=== PATIENT | male | born 1990 | race Caucasian/White ===

== ENCOUNTER 2017-08-01 19:31 | Emergency (ER) | payer SELFPAY ==
[2017-08-01] MEDS ORDERED: DIPH/PERTUSS(ACELL)/TETANUS VAC/PF 0.5 ML SYR (>=10YO) IM ONE (19:36)
[2017-08-01] MEDS ORDERED: TOPIRAMATE 25 MG TABLET PO ONE (19:36)
[2017-08-01 19:38] VITALS: BP 128/80
--- NOTE | 2017-08-01 19:39 | ER Document Report ---
ED General - General Chief Complaint: Probable Seizure Stated Complaint: FALL, POSSIBLE SEIZURE Time Seen by Provider: 08/01/17 19:35 Mode of Arrival: Ambulatory Information source: Patient Notes: 27 yr old male with hx of seizure disorder who is on topimax 50mg bid presents with seizure episode. Pt denies any fevers or chills, denies any neck pain. pt notes that he has not been taking his meds the way he is supposed to. Patient denies any facial pain notes abrasions. - HPI Onset: Just prior to arrival Onset/Duration: Sudden Quality of pain: Burning Severity: Mild Pain Level: 1 Associated symptoms: Other Exacerbated by: Denies Relieved by: Denies Similar symptoms previously: Yes Recently seen / treated by doctor: Yes Past Medical History - Social History Smoking Status: Current Every Day Smoker Cigarette use (# per day): Yes Chew tobacco use (# tins/day): No Smoking Education Provided: No Family History: Reviewed & Not Pertinent Review of Systems - Review of Systems Notes: REVIEW OF SYSTEMS: CONSTITUTIONAL : Denies fever, chills, or sweats. Denies recent illness. EENT: Denies eye, ear, throat, or mouth pain or symptoms. Denies nasal or sinus congestion or discharge. Denies throat, tongue, or mouth swelling or difficulty swallowing. CARDIOVASCULAR: Denies chest pain. Denies palpitations or racing or irregular heart beat. Denies ankle edema. RESPIRATORY: Denies cough, cold, or chest congestion. Denies shortness of breath, difficulty breathing, or wheezing. GASTROINTESTINAL: Denies abdominal pain or distention. Denies nausea, vomiting , or diarrhea. Denies blood in vomitus, stools, or per rectum. Denies black, tarry stools. Denies constipation. GENITOURINARY: Denies difficulty urinating, painful urination, burning, frequency, blood in urine, or discharge. MUSCULOSKELETAL: Denies back or neck pain or stiffness. Denies joint pain or swelling. SKIN: admits to abrasion HEMATOLOGIC : Denies easy bruising or bleeding. LYMPHATIC: Denies swollen, enlarged glands. NEUROLOGICAL: admitsto seizure . PSYCHIATRIC: Denies anxiety or stress. Denies depression, suicidal ideation, or homicidal ideation. ALL OTHER SYSTEMS REVIEWED AND NEGATIVE. Dictation was performed using [employer] voice recognition software PHYSICAL EXAMINATION: GENERAL: Well-appearing, well-nourished and in no acute distress. HEAD: Atraumatic, normocephalic. EYES: Pupils equal round and reactive to light, extraocular movements intact, sclera anicteric, conjunctiva are normal. ENT: Nares patent, oropharynx clear without exudates. Moist mucous membranes. NECK: Normal range of motion, supple without lymphadenopathy LUNGS: Breath sounds clear to auscultation bilaterally and equal. No wheezes rales or rhonchi. HEART: Regular rate and rhythm without murmurs ABDOMEN: Soft, nontender, nondistended abdomen. No guarding, no rebound. No masses appreciated. Musculoskeletal: Normal range of motion, no pitting or edema. No cyanosis. NEUROLOGICAL: Cranial nerves grossly intact. Normal speech, normal gait. Normal sensory, motor exams PSYCH: Normal mood, normal affect. SKIN: abrasion to right cheek, abrasion to lower inner lip, abrasions to bilateral knees. Course - Re-evaluation Re-evalutation: 08/01/17 19:38 Patient refuses to have any imaging or lab work, I will treat him for his wounds give a dose of topiramate here update tetanus start patient on Keflex due to multiple abrasions otherwise he is well-appearing alert oriented no distress seizure episode only lasted approximately 30 seconds After performing a Medical Screening Examination, I estimate there is LOW risk for ACUTE GLAUCOMA, TEMPORAL ARTERITIS, MENINGITIS, INCRANIAL HEMORRHAGE, or ISCHEMIC STROKE thus I consider the discharge disposition reasonable. I have reevaluated this patient multiple times and no significant life threatening changes are noted. The patient and I have discussed the diagnosis and risks, and we agree with discharging home with close follow-up with the understanding that symptoms and presentations can change. We also discussed returning to the Emergency Department immediately if new or worsening symptoms occur. We have discussed the symptoms which are most concerning (e.g., changing or worsening symptoms, new numbness or weakness, vomiting, fever) that necessitate immediate return. Discharge - Discharge Clinical Impression: Seizure, Abrasions of multiple sites Condition: Stable Disposition: HOME, SELF-CARE Instructions: Seizure, Known Epileptic ([facility]) Additional Instructions: Follow up with your physician tomorrow for further care or return to the ED IMMEDIATELY if symptoms worsen or new concerns occur. If you cannot afford to follow up with your primary care physician a list of low cost clinics have been provided at the end of your discharge papers as well. Prescriptions: Cephalexin Monohydrate [Keflex 500 mg Capsule] 500 mg PO Q6H 5 Days capsule Topiramate 50 mg PO BID #60 tablet
[2017-08-01] MEDS ORDERED: CEPHALEXIN 500 MG CAPSULE PO ONE (19:40)
== END 2017-08-01 19:59 | disposition home or self-care (01) ==
LOC: ER 19:31
DX: G40.909 Epilepsy, unspecified, not intractable, without status epilepticus (principal); S00.81XA Abrasion of other part of head, initial encounter; S00.511A Abrasion of lip, initial encounter; S80.212A Abrasion, left knee, initial encounter; S80.211A Abrasion, right knee, initial encounter; F17.210 Nicotine dependence, cigarettes, uncomplicated; X58.XXXA Exposure to other specified factors, initial encounter; Z23 Encounter for immunization
CPT/HCPCS: 99284; 90471; 90715; J3490

== ENCOUNTER 2017-09-08 12:56 | Emergency (ER) | payer SELFPAY ==
[2017-09-08 13:08] VITALS: BP 124/73
--- NOTE | 2017-09-08 13:38 | ER Document Report ---
HPI - HPI Patient complains to provider of: Refill Topiramate TE 50 mg Onset: Other - Has a history of epilepsy has not obtained a primary doctor since moving here Pain Level: Denies Associated Symptoms: Other - Needs refill of seizure medicines Exacerbated by: Denies Relieved by: Denies Similar symptoms previously: Yes Recently seen / treated by doctor: No - ROS ROS below otherwise negative: Yes - CONSTITUTIONAL Constitutional: DENIES: Fever, Chills - EENT EENT: DENIES: Sore Throat, Ear Pain, Nasal Drainage-Clear, Nasal Drainage- Purulent, Congestion, Eye problems - NEURO Neurology: DENIES: Headache, Weakness, Vision blurred, Dizzinesss / Vertigo - CARDIOVASCULAR Cardiovascular: DENIES: Chest pain - RESPIRATORY Respiratory: DENIES: Trouble Breathing, Coughing - GASTROINTESTINAL Gastrointestinal: DENIES: Abdominal Pain, Nausea, Patient vomiting, Diarrhea, Constipation, Black / Bloody Stools - URINARY Urinary: DENIES: Dysuria, Urgency, Frequency - REPRODUCTIVE Reproductive: DENIES: :, Postmenopausal, Abnormal bleeding / discharge - MUSCULOSKELETAL Musculoskeletal: DENIES: Extremity pain, Back Pain, Neck Pain, Swelling - DERM Skin Color: Normal Skin Problems: None Past Medical History - General Information source: Patient - Social History Smoking Status: Current Every Day Smoker Cigarette use (# per day): Yes - Pack per day Chew tobacco use (# tins/day): No Smoking Education Provided: Yes - 4 minutes Frequency of alcohol use: None Drug Abuse: None Occupation: [employer] Lives with: Friend Family History: Reviewed & Not Pertinent Patient has suicidal ideation: No Patient has homicidal ideation: No - Past Medical History Cardiac Medical History: Reports: None Pulmonary Medical History: Reports: None EENT Medical History: Reports: None Neurological Medical History: Reports: Hx Seizures Endocrine Medical History: Reports: None Renal/ Medical History: Reports: None Malignancy Medical History: Reports None GI Medical History: Reports: None Musculoskeltal Medical History: Reports None Skin Medical History: Reports None Psychiatric Medical History: Reports: None Traumatic Medical History: Reports: None Infectious Medical History: Reports: None Surgical Hx: Negative Past Surgical History: Reports: None Vertical Provider Document - CONSTITUTIONAL Agree With Documented VS: Yes Exam Limitations: No Limitations General Appearance: WD/WN - INFECTION CONTROL TRAVEL OUTSIDE OF THE U.S. IN LAST 30 DAYS: No - HEENT HEENT: Atraumatic, Normal ENT Exam, Normocephalic, PERRLA - NECK Neck: Normal Inspection, Supple - RESPIRATORY Respiratory: Breath Sounds Normal, No Respiratory Distress - CARDIOVASCULAR Cardiovascular: Regular Rhythm, Tachycardia - MUSCULOSKELETAL/EXTREMETIES Musculoskeletal/Extremeties: MAEW, FROM, Non-Tender - NEURO Level of Consciousness: Awake, Alert, Appropriate - DERM Integumentary: Warm, Dry Course - Re-evaluation Re-evalutation: 09/08/17 22:24 Patient needed refill for his seizure medications patient was instructed to please follow-up with her primary care doctor and get his refills at the primary care doctor. He was instructed that it is an appropriate to keep coming to the emergency room for his seizure medications as these medications need to be monitored and patient was given a list of local primary doctor's and a neurologist in [place] to get his refills. - Vital Signs Vital signs: Temp Pulse Resp BP Pulse Ox 99.7 F 116 H 20 124/73 97 09/08/17 13:07 09/08/17 13:07 09/08/17 13:07 09/08/17 13:07 09/08/17 13:07 Discharge - Discharge Clinical Impression: Medicine refill, Seizure disorder Condition: Stable Disposition: HOME, SELF-CARE Additional Instructions: He was seen today for medication refill for your seizure medicine. It is extremely important that you get a primary care doctor to monitor your seizure medications and to refill your medications. Able to given you a list of the local primary doctor's. Please call in obtaining a primary care doctor. Seizure You have had a seizure. Seizure disorders (epilepsy) of one sort or another affect about one out of 50 people. The seizure occurs because of abnormal electrical activity in the brain. Seizures may be due to drugs and alcohol, strokes, brain injury, or infection. In the most common form of epilepsy, no cause can be found. You will require further evaluation to determine the cause of your seizure, and to determine whether anti-seizure medication is required. This follow-up testing is important, so please call us if you encounter problems with scheduling of tests or appointments. YOU SHOULD NOT DRIVE until released to do so by your physician. The law requires that seizures be reported to the regional owner operator truck driver's license bureau--a seizure while driving could be catastrophic. Call the doctor if seizures recur, or if you develop new symptoms such as fever, severe headache, stiff neck, confusion or increasing sleepiness, weakness or numbness, or visual problems. FOLLOW-UP CARE: If you have been referred to a physician for follow-up care, call the physician s office for an appointment as you were instructed or within the next two days. If you experience worsening or a significant change in your symptoms, notify the physician immediately or return to the Emergency Department at any time for re-evaluation. [facility] Neurology [address], [place] Open 8:30 AM - 4:30 PM Prescriptions: Topiramate 50 mg PO BID #60 tablet Forms: Smoking Cessation Education, Return to Work Referrals: [facility] [Provider Group] - Follow up as needed
== END 2017-09-08 13:46 | disposition home or self-care (01) ==
LOC: ER 12:56
DX: Z76.0 Encounter for issue of repeat prescription (principal); G40.909 Epilepsy, unspecified, not intractable, without status epilepticus; F17.210 Nicotine dependence, cigarettes, uncomplicated; Z71.6 Tobacco abuse counseling
CPT/HCPCS: 99281; 99406

== ENCOUNTER 2017-10-20 12:01 | Emergency (ER) | payer SELFPAY ==
[2017-10-20 12:27] VITALS: BP 114/74
--- NOTE | 2017-10-20 13:11 | ER Document Report ---
HPI - HPI Patient complains to provider of: Needs medication refill Onset: Other - 2 days ago Pain Level: Denies Context: 27-year-old male with history of epilepsy ran out of his Topamax 50 mg that he takes twice a day 2 days ago. He had a seizure yesterday but did not injure himself. He is been living in [place] for 6 months but has not sought medical care because he does not have insurance. He is to be seen at the [facility] neurology in [place] before he moved here. I will give him information about the [facility] and Dr. Peace. - REPRODUCTIVE Reproductive: DENIES: : Past Medical History - General Information source: Patient - Social History Smoking Status: Current Every Day Smoker Chew tobacco use (# tins/day): No Frequency of alcohol use: None Drug Abuse: None Lives with: Family Family History: Reviewed & Not Pertinent Patient has suicidal ideation: No Patient has homicidal ideation: No Neurological Medical History: Reports: Hx Seizures Renal/ Medical History: Denies: Hx Peritoneal Dialysis Surgical Hx: Negative Vertical Provider Document - CONSTITUTIONAL Agree With Documented VS: Yes Exam Limitations: No Limitations - INFECTION CONTROL TRAVEL OUTSIDE OF THE U.S. IN LAST 30 DAYS: No - HEENT HEENT: PERRLA - NECK Neck: Supple - MUSCULOSKELETAL/EXTREMETIES Musculoskeletal/Extremeties: MAEW - NEURO Level of Consciousness: Awake, Alert, Appropriate Course - Vital Signs Vital signs: Temp Pulse Resp BP Pulse Ox 98.9 F 95 16 114/74 98 10/20/17 12:25 10/20/17 12:25 10/20/17 12:25 10/20/17 12:25 10/20/17 12:25 Discharge - Discharge Clinical Impression: Seizures, Medication refill Condition: Good Disposition: HOME, SELF-CARE Instructions: [facility], Seizure, Known Epileptic ([facility]) Additional Instructions: See the [facility] they may refill your medications Referral to neurologist given to you Prescriptions: Topiramate [Topamax] 50 mg PO BID #60 tablet Referrals: SKY PEACE MD [NO LOCAL MD] - Follow up in 1 week
== END 2017-10-20 13:21 | disposition home or self-care (01) ==
LOC: ER 12:01
DX: Z76.0 Encounter for issue of repeat prescription (principal); G40.909 Epilepsy, unspecified, not intractable, without status epilepticus
CPT/HCPCS: 99281

== ENCOUNTER 2017-11-11 08:21 | Emergency (ER) | payer SELFPAY ==
[2017-11-11] MEDS ORDERED: TOPIRAMATE 25 MG TABLET PO ONE (09:31)
--- NOTE | 2017-11-11 09:35 | ER Document Report ---
ED Medical Screen (RME) - General Chief Complaint: Probable Seizure Stated Complaint: POSSIBLE SEIZURE Time Seen by Provider: 11/11/17 09:26 Notes: RAPID MEDICAL EVALUATION DISCLOSURE I have seen this patient as part of a Rapid Medical Evaluation and, if applicable, placed any initially appropriate orders. The patient will be seen and fully evaluated, including a full history and physical exam, by a provider ( in Main ED or Fast Track) when a room becomes available. 27-year-old male H self-reported seizure disorder on topiramate 50 mg twice daily brought in by EMS after he had a seizure. He states his boss did see the seizure however he does not remember any part of it (and there is no one else in room w pt). He was standing when he suffered a seizure however does not believe he hit his head neck or any other part of his body sustaining a traumatic injury. He reports that he usually knows when he has struck a part of his body because it usually hurts however he does not currently have any pain. He has missed several doses of his Topamax in the past week. He does still have some pills left at home however states he is going to be running out soon. He has been seen here several times for this, in the past 2 months since moving here from [place], however has still not yet established care with PCP or neurologist. EXAM CN grossly intact Finger to nose intact Strength 5/5 w intact sensation all extremities Alert & Oriented TRAVEL OUTSIDE OF THE U.S. IN LAST 30 DAYS: No - Related Data Allergies/Adverse Reactions: No Known Allergies Allergy (Verified 11/11/17 08:22) Past Medical History - Social History Chew tobacco use (# tins/day): No Frequency of alcohol use: None Drug Abuse: None Neurological Medical History: Reports: Hx Seizures Renal/ Medical History: Denies: Hx Peritoneal Dialysis Physical Exam - Vital signs Vitals: Temp Pulse Resp BP Pulse Ox 98.2 F 101 H 16 114/74 98 11/11/17 08:23 11/11/17 08:23 11/11/17 08:23 11/11/17 08:23 11/11/17 08:23 Course - Vital Signs Vital signs: Temp Pulse Resp BP Pulse Ox 98.2 F 101 H 16 114/74 98 11/11/17 08:23 11/11/17 08:23 11/11/17 08:23 11/11/17 08:23 11/11/17 08:23
[2017-11-11 09:52] LABS: ABSOLUTE EOSINOPHILS # (AUTO) 0.1 10^3/uL (0.0-0.6); ABSOLUTE LYMPHOCYTES (AUTO) 0.6 10^3/uL (0.5-4.7); ABSOLUTE MONOCYTES (AUTO) 0.5 10^3/uL (0.1-1.4); BASOPHILS % (AUTO) 0.6 % (0-2); EOSINOPHILS % (AUTO) 1.3 % (0-6); HEMOGLOBIN 16.1 g/dL (13.5-17.0); LYMPHOCYTES % (AUTO) 10.1 % (13-45); MEAN CORPUSCULAR HEMOGLOBIN 31.6 pg (27.0-33.4); MEAN CORPUSCULAR HGB CONC 34.3 g/dL (32.0-36.0); MEAN CORPUSCULAR VOLUME 92 fl (80-97); MONOCYTES % (AUTO) 7.9 % (3-13); PLATELET COUNT 228 10^3/uL (150-450); RED CELL DISTRIBUTION WIDTH 13.6 % (11.5-14.0); SEGMENTED NEUTROPHILS % (AUTO) 80.1 % (42-78); TOTAL CELLS COUNTED % (AUTO) 100 %; WHITE BLOOD COUNT 6.3 10^3/uL (4.0-10.5)
[2017-11-11 10:31] LABS: ALANINE AMINOTRANSFERASE 26 U/L (21-72); ALBUMIN 4.2 g/dL (3.5-5.0); ALKALINE PHOSPHATASE 82 U/L (38-126); ANION GAP 10 (5-19); ASPARTATE AMINO TRANSFERASE 19 U/L (17-59); BILIRUBIN,DIRECT 0.3 mg/dL (0.0-0.4); BILIRUBIN,TOTAL 0.4 mg/dL (0.2-1.3); BLOOD UREA NITROGEN 6 mg/dL (7-20); CALCIUM 9.6 mg/dL (8.4-10.2); CARBON DIOXIDE 28 mmol/L (22-30); CHLORIDE 105 mmol/L (98-107); GLUCOSE 97 mg/dL (75-110); POTASSIUM 4.6 mmol/L (3.6-5.0); SODIUM 142.6 mmol/L (137-145); TOTAL PROTEIN 7.2 g/dL (6.3-8.2)
[2017-11-11 10:38] LABS: URINE AMPHETAMINES SCREEN NEGATIVE; URINE BARBITURATES SCREEN NEGATIVE; URINE BENZODIAZEPINES SCREEN NEGATIVE; URINE COCAINE SCREEN NEGATIVE; URINE MARIJUANA (THC) SCREEN UNCONFIRMED POSITIVE; URINE METHADONE SCREEN NEGATIVE; URINE PHENCYCLIDINE SCREEN NEGATIVE
--- NOTE | 2017-11-11 11:28 | ER Document Report ---
ED Seizure - General Chief Complaint: Probable Seizure Stated Complaint: POSSIBLE SEIZURE Time Seen by Provider: 11/11/17 09:26 Notes: Patient says he had a seizure this morning. He has a history of a seizure disorder for which he takes Topamax 50 mg twice a day. He missed this morning' s dose and possibly last evening's dose of his medications. No one witnessed the seizure. Patient says he does not get an aura preceding his seizures. He did not chew his tongue, wet his pants, etc. He was first diagnosed with seizures and 2001. His most recent seizure was about a month ago, also when he failed to take his medications correctly. Patient has not been sick in any way recently. Has not had any URI symptoms. Has not had any fever. Only been feeling tired. - Related Data Allergies/Adverse Reactions: No Known Allergies Allergy (Verified 11/11/17 08:22) Past Medical History - Social History Smoking Status: Current Every Day Smoker Chew tobacco use (# tins/day): No Frequency of alcohol use: None Drug Abuse: None Family History: Reviewed & Not Pertinent Patient has suicidal ideation: No Patient has homicidal ideation: No Neurological Medical History: Reports: Hx Seizures Review of Systems - Review of Systems Notes: REVIEW OF SYSTEMS: CONSTITUTIONAL : Denies fever. EENT: Denies eye, ear, nose or mouth or throat pain or other symptoms. CARDIOVASCULAR: Denies chest pain. RESPIRATORY: Denies cough, chest congestion, or shortness of breath. GASTROINTESTINAL: Denies abdominal pain or nausea, vomiting, or diarrhea. GENITOURINARY: Denies difficulty or painful urinating, urinary frequency, blood in urine. MUSCULOSKELETAL: Denies back or neck pain. Denies joint pain or swelling. SKIN: Denies rash or skin lesions. NEUROLOGICAL: Denies LOC or altered mental status. Some mild headache. Denies sensory loss or motor deficits. ALL OTHER SYSTEMS REVIEWED AND NEGATIVE. Physical Exam - Vital signs Vitals: Temp Pulse Resp BP Pulse Ox 98.2 F 101 H 16 114/74 98 11/11/17 08:23 11/11/17 08:23 11/11/17 08:23 11/11/17 08:23 11/11/17 08:23 Interpretation: Normal - Notes Notes: PHYSICAL EXAMINATION: GENERAL: Well-appearing, in no acute distress. Ambulatory without difficulty. Vital signs are all essentially normal. HEAD: Atraumatic, normocephalic. EYES: Pupils equal round and reactive to light, extraocular movements intact. ENT: oropharynx clear without exudates. Moist mucous membranes. No injury to the tongue seen. NECK: Normal range of motion, supple. LUNGS: Breath sounds clear and equal bilaterally. HEART: Regular rate and rhythm without murmurs. ABDOMEN: Soft, nontender. No guarding or rebound. No masses. BACK: No tenderness throughout entire back. EXTREMITIES: Normal range of motion without pain. NEUROLOGICAL: Normal speech, normal gait. Normal sensory, motor, and reflex exams. Awake, alert, and oriented x3. Cranial nerves normal. PSYCH: Normal mood, normal affect. SKIN: Warm, dry, no rashes. Course - Vital Signs Vital signs: Temp Pulse Resp BP Pulse Ox 97.7 F 64 16 129/85 H 100 11/11/17 11:32 11/11/17 11:32 11/11/17 11:32 11/11/17 11:32 11/11/17 11:32 - Laboratory Result Diagrams: 11/11/17 09:42 11/11/17 09:42 Laboratory results interpreted by me: 11/11/17 11/11/17 09:42 09:42 Seg Neutrophils % 80.1 H Lymphocytes % 10.1 L BUN 6 L Phosphorus 2.0 L 11/11/17 19:11 Labs are all essentially normal. Discharge - Discharge Clinical Impression: Seizure Condition: Stable Disposition: HOME, SELF-CARE Additional Instructions: Seizure You have had a seizure. Seizure disorders (epilepsy) of one sort or another affect about one out of 50 people. The seizure occurs because of abnormal electrical activity in the brain. Seizures may be due to drugs and alcohol, strokes, brain injury, or infection. In the most common form of epilepsy, no cause can be found. You will require further evaluation to determine the cause of your seizure, and to determine whether anti-seizure medication is required. This follow-up testing is important, so please call us if you encounter problems with scheduling of tests or appointments. YOU SHOULD NOT DRIVE until released to do so by your physician. The law requires that seizures be reported to the driver license agent's license bureau--a seizure while driving could be catastrophic. Call the doctor if seizures recur, or if you develop new symptoms such as fever, severe headache, stiff neck, confusion or increasing sleepiness, weakness or numbness, or visual problems. Take your medications as prescribed. NORMAL EXAM AND WORKUP: At this time, your examination and workup show no significant abnormality. No significant abnormal physical findings were noted. All laboratory, EKG, and imaging (x-ray, CT scans, ultrasound) studies that were ordered show no significant abnormality. Although your examination and all studies that were ordered showed no significant abnormal finding, there are no examinations and no studies that are 100% accurate. There is always the possibility that some abnormality could exist and not be detected with physical examination or within the limits and capabilities of laboratory and other studies. You should return or follow up as you were instructed on your visit today for further evaluation if your symptoms do not resolve. FOLLOW-UP CARE: If you have been referred to a physician for follow-up care, call the physician s office for an appointment as you were instructed or within the next two days. If you experience worsening or a significant change in your symptoms, notify the physician immediately or return to the Emergency Department at any time for re-evaluation. Prescriptions: Topiramate [Topamax] 50 mg PO BID #60 tablet Forms: Return to Work
[2017-11-11 11:35] VITALS: BP 129/85
== END 2017-11-11 11:35 | disposition home or self-care (01) ==
LOC: ER 08:21
DX: G40.909 Epilepsy, unspecified, not intractable, without status epilepticus (principal); T42.6X6A Underdosing of other antiepileptic and sedative-hypnotic drugs, initial encounter; Z91.14 Patient's other noncompliance with medication regimen; Z79.899 Other long term (current) drug therapy; R53.83 Other fatigue; R51 Headache; F17.200 Nicotine dependence, unspecified, uncomplicated
CPT/HCPCS: 99284; 36415; 83735; 84100; 85025; 80053; 80307; J3490